=== PATIENT | male | born 1950 | race Two or more races ===

== ENCOUNTER 2019-11-14 19:24 | Emergency (ER) | payer OTHER, MEDICARE ==
[~2019-11-14] VITALS: Ht 170.2 cm; Wt 65.9 kg
[2019-11-14 19:26] VITALS: BP 140/80
--- NOTE | 2019-11-14 19:34 | NUR ---
Dr. Luque notified of patient condition. CT cervical spine ordered.
[2019-11-14] MEDS ORDERED: ibuprofen 200mg tablet PO ONE (20:20)
[2019-11-14] MEDS ORDERED: CYCL-1 PO (20:24)
== END 2019-11-14 20:36 | disposition home or self-care (01) ==
LOC: ER 19:25
DX: S13.8XXA Sprain of joints and ligaments of other parts of neck, initial encounter (principal); F10.99 Alcohol use, unspecified with unspecified alcohol-induced disorder; Z79.899 Other long term (current) drug therapy; V49.9XXA Car occupant (driver) (passenger) injured in unspecified traffic accident, initial encounter; Y93.89 Activity, other specified; Y92.488 Other paved roadways as the place of occurrence of the external cause; Y99.8 Other external cause status; Y90.9 Presence of alcohol in blood, level not specified
CPT/HCPCS: 72125; 99284